=== PATIENT | female | born 1940 | race Two or more races ===

== ENCOUNTER 2025-01-22 10:31 | Inpatient (IN) | payer OTHER ==
[~2025-01-22] VITALS: Ht 162.6 cm; Wt 0.5 kg
[~2025-01-22 10:31] MED LIST: COZAAR25 MG PO; INTESTINEX680 M1 PO; LIPITOR20 MG PO; LOSARTAN-HCTZ1 EAC2 PO; PANTOPRAZOLE SO40 MG PO
[2025-01-22] MEDS ORDERED: AMLODIPINE BESY10 MG PO (11:10)
--- NOTE | 2025-01-22 11:13 | NUR ---
PTE ALERTA Y OIRNETADA X3 REFIERE DOLOR ABDOMINAL QUE SE LE IRADIA HACUA LA ESPALDA DESDE GAMA. SE MIDEN S/V Y SE UBICA.
[2025-01-22] MEDS ORDERED: KETOROLAC TROMETHAMINE 15 MG VIAL IU ONE (11:45)
[2025-01-22] MEDS ORDERED: 0.9 % SODIUM CHLORIDE 1,000 ML IV ONE (11:45)
[2025-01-22] MEDS ORDERED: FAMOTIDINE/PF 20 MG/2 ML VIAL IV ONE (11:45)
[2025-01-22] MEDS ORDERED: FAMOTIDINE/PF 20 MG/2 ML VIAL ONE (12:03)
[2025-01-22] MEDS ORDERED: KETOROLAC TROMETHAMINE 30 MG VIAL ONE (12:03)
--- NOTE | 2025-01-22 12:25 | NUR ---
TYRA SOSA ORIENTA SOBRE TX A SEGUIR, FAUSTO MUESTRAS DE LAB, CANALIZA Y ADMINISTRA MEDS SOBIA ORDEN MEDICA
[2025-01-22 12:56] LABS: BASO % 0.3 % (0.1-1.2); EOS # 0.00 (0.04-0.54); EOS % 0.0 % (0.7-7.0); LYMPH # 0.73 (1.18-3.74); LYMPH % 3.2 % (19.3-53.1); MEAN PLATELET VOLUME 9.10 fl (9.4-12.4); MONO # 1.57 (0.24-0.82); MONO % 6.8 % (4.7-12.5); NEUT # 20.62 (1.56-6.13); NEUT % 88.9 % (34.0-71.1); RED CELL DISTRIBUTION WIDTH 13.5 % (11.6-14.4)
[2025-01-22 13:22] LABS: ALT/SGPT 15.0 U/L (12-78); AST/SGOT 14.0 U/L (15-37); BILIRUBIN TOTAL 1.2 mg/dL (0.3-1.2); BILIRUBIN,CONJUGATED 0.35 mg/dL (0.0-0.2); BUN CREA RATIO 15.0 (7.0-25.0); CREATININE SERUM 1.9 mg/dL (0.55-1.02); GFR 25.18; GLUCOSE FASTING 152.0 mg/dL (65-100); OSMOLALITY SERUM 284.0 MOSM/KG (275-295)
[2025-01-22] MEDS ORDERED: CEFTRIAXONE SODIUM 2,000 MG VIAL IV ONE (15:15)
[2025-01-22] MEDS ORDERED: CEFTRIAXONE SODIUM 2,000 MG VIAL ONE (15:23)
[2025-01-22 15:59] LABS: URINE APPEARANCE Turbid; URINE BILIRRUBIN Negative (NEGATIVE); URINE BLOOD Moderate; URINE COLOR Dark Yellow; URINE GLUCOSE Negative (NEGATIVE); URINE KETONE Negative (NEGATIVE); URINE LEUKOCYTE Large; URINE NITRATE Positive; URINE UROBILINOGEN 1.0 E.U./dl
[2025-01-22 16:01] LABS: URINE BACTERIA 6869.7 uL (0.0-1933); URINE CAST 3.37 uL (0.0-1.40); URINE EPITHELIAL CELLS 27.9 uL (0.0-38.8); URINE RBC 30.5 uL (0.0-20.8)
[2025-01-22 16:29] LABS: URINE PROTEIN 100 (NEGATIVE)
[2025-01-22 16:35] LABS: URINE MUCUS SCANT; URINE WBC 2155.3 uL (0.0-23.2)
[2025-01-22 16:36] LABS: TYPE CELLS SQUAMOUS
--- NOTE | 2025-01-22 18:32 | NUR ---
SE ORIENTA A PACIENTE SOBRE TX MEDICO, REFIERE ENTENDER. SE INSERTA SONDA URINARIA BAJO MEDIDAS ESTERILES, SE OBSERVA EGRESO URINARIO 300ML DE ORINA COLOR AMARILLO INTENSO. SE MICHELLE A PACIENTE EN CAMA CON BARANDAS ELEVADAS POR SEGURIDAD Y SE MANTIENE EN OBSERVACION POR CAMBIOS.
[2025-01-22] MEDS ORDERED: PIPERACILLIN/TAZOBACTAM SODIUM 3.375 GM in DEXTROSE 5 % IN WATER 100 ML IV SCH (18:55)
[2025-01-22] MEDS ORDERED: ACETAMINOPHEN 500 MG GEL..CAP PO PRN (19:00)
[2025-01-22] MEDS ORDERED: 0.9 % SODIUM CHLORIDE 1,000 ML IV SCH (19:15)
[2025-01-22] MEDS ORDERED: LOSARTAN/HYDROCHLOROTHIAZIDE 1 TAB TABLET PO SCH (19:32)
[2025-01-22] MEDS ORDERED: ATORVASTATIN CALCIUM 20 MG TABLET PO SCH (19:33)
[2025-01-22] MEDS ORDERED: IPRATROPIUM/ALBUTEROL SULFATE 3 ML AMPUL.NEB IH SCH (19:36)
[2025-01-22] MEDS ORDERED: IPRATROPIUM/ALBUTEROL SULFATE 3 ML AMPUL.NEB IH ONE ×2 (19:50→22:57)
[2025-01-22] MEDS ORDERED: PIPERACILLIN/TAZOBACTAM SODIUM 3.375 GM VIAL IV ONE (20:24)
[2025-01-22] MEDS ORDERED: POTASSIUM CHLORIDE IN WATER 100 ML IV SCH (21:00)
[2025-01-22 21:16] LABS: ABG PH 7.468 (7.35-7.45); ABG PO2 73.5 mmHg (80-100); BICARBONATE 20.6 mmol/l (23-25)
[2025-01-22 21:17] LABS: o2 21 %
[2025-01-22] MEDS ORDERED: POTASSIUM CHLORIDE 20MEQ/100ML H2O PB IV ONE (21:40)
[2025-01-22 22:01] LABS: INR 1.15
[2025-01-23 00:40] VITALS: BP 132/78; O2SAT 99
[2025-01-23 02:46] VITALS: BP 132/78; O2SAT 99
[2025-01-23 07:05] LABS: ALT/SGPT 11.0 U/L (12-78); AST/SGOT 13.0 U/L (15-37); BILIRUBIN TOTAL 0.77 mg/dL (0.3-1.2); BUN CREA RATIO 17.0 (7.0-25.0); CREATININE SERUM 2.17 mg/dL (0.55-1.02); GFR 21.6; GLOBULINA 3.2 G/DL (2.4-3.5); GLUCOSE FASTING 125.0 mg/dL (65-100); OSMOLALITY SERUM 287.0 MOSM/KG (275-295)
[2025-01-23 08:00] VITALS: BP 112/71; O2SAT 96
[2025-01-23] MEDS ORDERED: FAMOTIDINE/PF 20 MG in 0.9 % SODIUM CHLORIDE 8 ML IV PUSH SCH (09:00)
[2025-01-23] MEDS ORDERED: MEROPENEM 500 MG/VIAL VIAL IV SCH (09:00)
[2025-01-24 01:14] VITALS: BP 96/57; O2SAT 96
[2025-01-24 06:46] LABS: BASO % 0.4 % (0.1-1.2); EOS # 0.03 (0.04-0.54); EOS % 0.3 % (0.7-7.0); LYMPH # 0.77 (1.18-3.74); LYMPH % 7.2 % (19.3-53.1); MEAN PLATELET VOLUME 9.80 fl (9.4-12.4); MONO # 0.97 (0.24-0.82); MONO % 9.1 % (4.7-12.5); NEUT # 8.82 (1.56-6.13); NEUT % 82.5 % (34.0-71.1); RED CELL DISTRIBUTION WIDTH 13.6 % (11.6-14.4)
[2025-01-24 07:15] LABS: ALT/SGPT 9.0 U/L (12-78); AST/SGOT 11.0 U/L (15-37); BILIRUBIN TOTAL 0.38 mg/dL (0.3-1.2); BUN CREA RATIO 18.0 (7.0-25.0); CREATININE SERUM 1.89 mg/dL (0.55-1.02); GFR 25.34; GLOBULINA 3.2 G/DL (2.4-3.5); GLUCOSE FASTING 99.0 mg/dL (65-100); OSMOLALITY SERUM 285.0 MOSM/KG (275-295)
[2025-01-24] MEDS ORDERED: POTASSIUM CHLORIDE IN WATER 40 MEQ/100 ML PIGGYBAG IV SCH (09:00)
[2025-01-24 10:48] VITALS: BP 103/66; O2SAT 96
[2025-01-24 16:00] VITALS: BP 105/65; O2SAT 99
[2025-01-24] MEDS ORDERED: AMINO ACIDS 1 EACH TABLET PO SCH (17:00)
[2025-01-25 01:52] VITALS: BP 112/72; O2SAT 96
[2025-01-25 07:24] LABS: ALT/SGPT 13.0 U/L (12-78); AST/SGOT 12.0 U/L (15-37); BILIRUBIN TOTAL 0.4 mg/dL (0.3-1.2); BUN CREA RATIO 18.0 (7.0-25.0); CREATININE SERUM 1.53 mg/dL (0.55-1.02); GFR 32.33; GLOBULINA 3.4 G/DL (2.4-3.5); GLUCOSE FASTING 106.0 mg/dL (65-100); OSMOLALITY SERUM 285.0 MOSM/KG (275-295)
[2025-01-25 07:48] LABS: URINE APPEARANCE Clear; URINE BILIRRUBIN Negative (NEGATIVE); URINE BLOOD Trace; URINE COLOR Yellow; URINE GLUCOSE Negative (NEGATIVE); URINE KETONE Negative (NEGATIVE); URINE LEUKOCYTE Small; URINE NITRATE Negative; URINE PROTEIN Negative (NEGATIVE); URINE UROBILINOGEN 1.0 E.U./dl
[2025-01-25 07:50] LABS: URINE BACTERIA 436.7 uL (0.0-1933); URINE EPITHELIAL CELLS 156.1 uL (0.0-38.8); URINE RBC 25.0 uL (0.0-20.8); URINE WBC 62.6 uL (0.0-23.2)
[2025-01-25 08:22] LABS: URINE CAST 0.00 uL (0.0-1.40)
[2025-01-25 08:54] VITALS: BP 122/77; O2SAT 95
[2025-01-25 16:15] VITALS: BP 123/60; O2SAT 98
[2025-01-25] MEDS ORDERED: MEROPENEM 500 MG/VIAL VIAL IV SCH (21:00)
[2025-01-25] MEDS ORDERED: FAMOTIDINE/PF 20 MG in 0.9 % SODIUM CHLORIDE 8 ML IV PUSH SCH (21:00)
[2025-01-26 00:41] VITALS: BP 138/71; O2SAT 98
[2025-01-26 07:38] LABS: BASO % 0.6 % (0.1-1.2); EOS # 0.11 (0.04-0.54); EOS % 1.4 % (0.7-7.0); LYMPH # 1.22 (1.18-3.74); LYMPH % 15.2 % (19.3-53.1); MEAN PLATELET VOLUME 9.20 fl (9.4-12.4); MONO # 0.86 (0.24-0.82); MONO % 10.7 % (4.7-12.5); NEUT # 5.73 (1.56-6.13); NEUT % 71.5 % (34.0-71.1); RED CELL DISTRIBUTION WIDTH 14.1 % (11.6-14.4)
[2025-01-26 07:54] LABS: ALT/SGPT 12.0 U/L (12-78); AST/SGOT 13.0 U/L (15-37); BILIRUBIN TOTAL 0.47 mg/dL (0.3-1.2); BUN CREA RATIO 17.0 (7.0-25.0); CREATININE SERUM 1.33 mg/dL (0.55-1.02); GFR 38.01; GLOBULINA 3.3 G/DL (2.4-3.5); GLUCOSE FASTING 81.0 mg/dL (65-100); OSMOLALITY SERUM 284.0 MOSM/KG (275-295)
[2025-01-26 08:00] VITALS: BP 120/71; O2SAT 98
[2025-01-26 16:00] VITALS: BP 107/65; O2SAT 100
[2025-01-27 00:14] VITALS: BP 135/74; O2SAT 99
[2025-01-27 08:00] VITALS: BP 148/72; O2SAT 98
[2025-01-27 14:38] LABS: URINE APPEARANCE Clear; URINE BILIRRUBIN Negative (NEGATIVE); URINE BLOOD Negative; URINE COLOR Yellow; URINE GLUCOSE Negative (NEGATIVE); URINE KETONE Negative (NEGATIVE); URINE LEUKOCYTE Negative; URINE NITRATE Negative; URINE PROTEIN Negative (NEGATIVE); URINE UROBILINOGEN 0.2 E.U./dl
[2025-01-27 14:40] LABS: URINE WBC 21.1 uL (0.0-23.2)
[2025-01-27 14:42] LABS: URINE BACTERIA 2.3 uL (0.0-1933); URINE CAST 0.00 uL (0.0-1.40); URINE EPITHELIAL CELLS 0.7 uL (0.0-38.8); URINE RBC 1.7 uL (0.0-20.8)
[2025-01-27 16:00] VITALS: BP 119/73; O2SAT 100
[2025-01-28 00:05] VITALS: BP 131/79; O2SAT 98
[2025-01-28 08:45] VITALS: BP 125/75; O2SAT 98
[2025-01-28 15:55] VITALS: BP 137/71; O2SAT 96
[2025-01-29 01:34] VITALS: BP 143/79; O2SAT 97
[2025-01-29] MEDS ORDERED: LACTOBACILLUS ACIDOPHILUS 1 CAP CAP PO SCH (09:00)
[2025-01-29] MEDS ORDERED: HYOSCYAMINE SULFATE 0.125 MG TAB.SUBL SL SCH (09:00)
[2025-01-29 09:32] VITALS: BP 130/71; O2SAT 98
[2025-01-29 17:09] VITALS: BP 118/62; O2SAT 97
[2025-01-30 01:29] VITALS: BP 135/79; O2SAT 97
[2025-01-30] MEDS ORDERED: INTESTINEX680 M1 PO (07:02)
[2025-01-30] MEDS ORDERED: HYOSCYAMINE0.125 M1 SL (07:02)
[2025-01-30] MEDS ORDERED: LOSARTAN-HCTZ1 EAC2 PO (07:02)
[2025-01-30 09:05] VITALS: BP 109/68; O2SAT 97
== END 2025-01-30 11:36 | disposition home or self-care (01) | DRG 444 ==
LOC: ER 10:31 → SURH 19:39 → SEC-K 19:39 → SURH 22:06
PROVIDERS: Emergency Medicine; General Practice; Internal Medicine; Internal Medicine Infectious Disease; ADMIT Internal Medicine; ATTEND Internal Medicine
PROC: 4A033R1 Measurement of Arterial Saturation, Peripheral, Percutaneous Approach (ICD-10-PCS; principal; 2025-01-22)
PROC: 3E0F7GC Introduction of Other Therapeutic Substance into Respiratory Tract, Via Natural or Artificial Opening (ICD-10-PCS; 2025-01-22)
PROC: BW21ZZZ Computerized Tomography (CT Scan) of Abdomen and Pelvis (ICD-10-PCS; 2025-01-22)
PROC: BW40ZZZ Ultrasonography of Abdomen (ICD-10-PCS; 2025-01-22)
PROC: 4A12X4Z Monitoring of Cardiac Electrical Activity, External Approach (ICD-10-PCS; 2025-01-23)
PROC: CF1C1ZZ Planar Nuclear Medicine Imaging of Hepatobiliary System, All using Technetium 99m (Tc-99m) (ICD-10-PCS; 2025-01-24)
DX: K80.10 Calculus of gallbladder with chronic cholecystitis without obstruction (principal); A41.9 Sepsis, unspecified organism; N39.0 Urinary tract infection, site not specified; K55.9 Vascular disorder of intestine, unspecified; R11.2 Nausea with vomiting, unspecified; R19.7 Diarrhea, unspecified; R10.32 Left lower quadrant pain; Z78.9 Other specified health status; R10.13 Epigastric pain